=== PATIENT | male | born 1975 | race Caucasian/White ===

== ENCOUNTER 2025-09-21 15:40 | Emergency (ER) | payer OTHER, SELFPAY ==
[2025-09-21] VITALS (7 sets, daily range): BP systolic 116–166; BP diastolic 43–95; PULSE 62–98; RESP 17–20; TEMP 36.7–37.2; O2SAT 93–98; BMI 33.5
--- NOTE | 2025-09-21 | ECG_ITS ---
Test Reason : SYNCOPE Blood Pressure : */* mmHG Vent. Rate : 62 BPM Atrial Rate : 62 BPM P-R Int : 146 ms QRS Dur : 94 ms QT Int : 402 ms P-R-T Axes : 22 3 26 degrees QTcB Int : 408 ms Normal sinus rhythm Normal ECG No previous ECGs available Referred By: Generic ED Physician Electronically Signed By: EWA BOSWELL MD
--- NOTE | ~2025-09-21 | CT_ITS ---
CLINICAL HISTORY: syncope, concern cervicocranial dissection CT Angiography Neck with contrast. 3-D postprocessing Comparison: None provided Findings: Left-sided aortic arch with three-vessel branching pattern. The common carotid arteries, carotid bulbs, and internal carotid arteries are patent. Moderate calcified atherosclerotic disease of bilateral carotid bulbs without flow-limiting stenosis. No definitive dissection. Hypoplastic right vertebral artery with a PICA terminus. Dominant left vertebral artery. Tortuosity of the vertebral arteries at the level of C2 and at the origin (at the level of T1). The visualized lung apices are clear. Normal thyroid gland. The partially visualized brain parenchyma is unremarkable. The mastoid air cells are well aerated in the paranasal sinuses are well aerated. Multilevel degenerative changes of the cervical spine worst from C5-C7. Multilevel mild spinal canal narrowing. Impression: No high-grade stenosis, occlusion, or definite dissection of the major neck arteries. Mild atherosclerotic disease of the bilateral carotid bulbs. Hypoplastic right vertebral artery and dominant left vertebral artery. Significant kinking of the left vertebral artery at the origin/level of T1 limits evaluation for a small dissection flap at this level. The lumen of the artery remains patent throughout its course. This document has been electronically signed by: Janna Saavedra MD on 09/21/2025 19:32:48
--- NOTE | 2025-09-21 17:06 | ED.SYNCOPE ---
HPI - Syncope General Chief Complaint: Syncope Stated Complaint: Syncope Time Seen by Provider: 09/21/25 15:51 History of Present Illness ED Provider: willow PERALTA narrative: Author / Clinician: Jackson Castillo MD Chief Complaint Syncope (black-out episode this afternoon) History of Present Illness The patient presents to the ED after a syncopal episode that occurred at approximately 1500 today. Prior to losing consciousness he experienced a prodrome described as a ?tingly/pulsing? sensation with a fluttering, hungry feeling in his stomach and marked anxiety. He denies headache, chest pain, shortness of breath, or visual changes preceding the event. Witness reports no gasping respirations. He had worked a half-day, had not eaten, and had consumed a Mountain Dew before the event. During the episode his head and neck were noted to be in an extended position while being supported; he denies any neck pain during or after this maneuver. He ambulated into the ambulance without light-headedness and began feeling better en route. He states this episode lasted longer than his prior stress/anxiety-related syncopal events, which typically resolve within a couple of minutes. Past similar episodes: yes, felt related to stress/anxiety in the past. No injuries with current event. No daily medications. He stopped alcohol two months ago and denies drug use. He has chronic, non-pulsatile tinnitus for the past several months. Patient also mentioned concern for possible pinched nerve or symptoms radiating into neck, back, or shoulder. --- Review of Systems ? Constitutional: no light-headedness after standing post-event. ? HEENT: denies headache, vision changes, or ear pain; positive constant ringing in the ears (tinnitus). ? Cardiovascular: denies chest pain or palpitations. ? Respiratory: denies shortness of breath or difficulty breathing. ? Gastrointestinal: fluttering/hungry sensation and mild stomach discomfort earlier today; no persistent abdominal pain at presentation. ? Musculoskeletal: denies neck or back pain; no recent injuries. Patient expressed concern for possible pinched nerve or symptoms radiating into neck, back, or shoulder. ? Neurologic: positive transient tingly/pulsing prodrome; denies focal weakness or persistent neurologic deficits. ? Psychiatric: reports feeling nervous/anxious before event. (Only systems specifically reviewed with the patient are documented.) --- Physical Examination Vital Signs: Not yet documented by provider at the time of this note. Physical Exam: Gen: Alert, awake, well-appearing, well-hydrated. Head: Atraumatic. Eyes: Anicteric, normal conjunctiva. ENT: Moist mucosa, no pallor. Neck: No pain reported during or after neck extension; no current neck discomfort. Respiratory: Breathing comfortably; clear to auscultation bilaterally; symmetric chest expansion; no wheezes, rales, or rhonchi. Cardiovascular: Regular rate and rhythm; no murmurs or rubs; extremities warm without edema. Abdominal: Mild stomach discomfort reported earlier in the day; no persistent abdominal pain at presentation. Neurologic: Alert and oriented; [id number] testing performed; able to follow commands and move extremities. Psych: Calm and cooperative. --- Assessment & Plan Preliminary Differential: - Recurrent syncope ? likely vasovagal vs transient cardiac arrhythmia - Dehydration / possible hypoglycemia - Anxiety-related episode Medical Decision Making This is a male patient presenting with a prolonged syncopal episode. A broad work-up is indicated to evaluate for cardiac, metabolic, and neurologic etiologies as discussed. Syncope: Broad possible etiologies though he is back to baseline and looks well with a reassuring cardiovascular and neurologic exam. ECG sinus rhythm not clinically orthostatic. Lab work reassuring no actionable findings. Possibly arrhythmia, vagal stimulation due to gibson activity, less likely cervical cranial dissection by CT performed to exclude this. --- Risk: - High: Threat to life/bodily Functions Plan: Initial Plan - Laboratory studies: CBC, CMP/electrolytes, thyroid panel, serum glucose, and urinalysis. - 12-lead ECG. - Consider imaging if clinically indicated (e.g., CT/CTA) ? no immediate CT neck planned based on current assessment. - Reassess following results; determine need for cardiology follow-up for outpatient rhythm monitoring. Data Analysis: - Imaging: Independent interpretation of imaging: [ ] - ECG: Independent interpretation of the ECG: Sinus rhythm isolated ST elevation concave upward V3. No STEMI criteria. No ischemic changes. Baseline artifact - POCUS: if performed independently see separate documentation Additional Complexity: - Social Determinants of health: [ ] - Consults: [ ] - Independent review of external records available: [ ] --- ED Course, Updates [ ] Disposition [ ] Critical Care: [N/A] Related Data Allergies Allergy/AdvReac Type Severity Reaction Status Date / Time No Known Allergies Allergy Verified 09/21/25 16:11 [facility] Social History Social History Smoked in Last 30 Days: No Use of substances other than those prescribed or required for medical reasons: Yes Substance Use Type: Marijuana Substance Use Frequency: Occasionally Advance Directives: No Advance Directives Information Provided: Yes Do you have a plan to hurt others: No Plan Physical Exam Vital Signs: Vital Signs: Last Vital Signs Temp 98.3 F 09/21/25 19:41 Pulse 62 09/21/25 19:41 Resp 18 09/21/25 19:41 BP 166/95 H 09/21/25 19:41 Pulse Ox 96 09/21/25 19:41 O2 Del Method Room Air 09/21/25 19:41 BMI result Body Mass Index 33.5 Medications Administered Discontinued Medications Generic Name Dose Route Start Last Admin Trade Name Freq PRN Reason Stop Dose Admin Iohexol 100 ml 09/21/25 18:11 09/21/25 18:11 Iohexol 350 Mg/Ml 100 Ml Infus..Btl IV 09/21/25 18:12 85 ml ONCE ONE Administration Medical Decision Making Medical Decision Making MDM Narrative: [age] male with history as above. Unclear etiology syncopal episode. Nonspecific finding of the left vertebral artery due to kinking though fully reconstituted vertebral artery. There was no visualized dissection nor does the patient have any cerebellar findings vision symptoms or focal neurologic deficits doubt any relevance to the patient's current presentation but I advised him he may need follow up with Neurology for outpatient MRI or further imaging to evaluate this. Reassuring echo, EKG and cardiovascular exam. Could have been a transient arrhythmia vasovagal episode or increased vagal tone from the neck positioning during Temi ring of the albert. Lab Data 09/21/25 17:13 09/21/25 17:13 Labs: Lab Results 09/21/25 09/21/25 Range/Units 17:13 17:45 WBC 9.7 (4.8-10.8) X10*3/uL RBC 4.92 (4.60-5.80) X10*6/uL Hgb 15.5 (14.0-18.0) g/dl Hct 44.0 (42.0-52.0) % MCV 89.4 (80.0-98.0) fL MCH 31.5 (27.0-33.0) pg MCHC 35.2 (31.0-36.0) g/dl RDW 11.9 (11.0-16.0) % Plt Count 229 (160-400) X10*3/uL MPV 9.9 (9.4-12.4) fL Immature Gran % (Auto) 0.4 (0.0-0.4) % Neut % (Auto) 80.6 H (45-73) % Lymph % (Auto) 11.8 L (20-40) % [place] % (Auto) 6.5 (2-11) % Eos % (Auto) 0.4 (0-4) % Baso % (Auto) 0.3 (0-2) % Lymph # (Auto) 1.2 (1.2-4.9) X10*3/uL [place] # (Auto) 0.6 (0.1-1.2) X10*3/uL Eos # (Auto) 0.0 (0.0-0.4) X10*3/uL Baso # (Auto) 0.0 (0.0-0.2) X10*3/uL Abs Immat Gran (auto) 0.04 H (0.00-0.03) X10*3/uL Absolute Neuts (auto) 7.8 (2.0-8.3) x10*3/uL Absolute Nucleated RBC 0.000 (0.0-0.012) X10*3/uL Nucleated RBC % (auto) 0.0 (0.0-0.2) /100WBC Sodium 142 (135-145) mmol/L Potassium 3.8 (3.3-5.1) mmol/L Chloride 106 (96-108) mmol/L Carbon Dioxide 27 (22-29) mmol/L Anion Gap 13 (12-20) BUN 11 (9-16) mg/dL Creatinine 0.88 (0.5-1.4) mg/dL Estim Creat Clear Calc 112.6 Estimated GFR > 60 Random Glucose 98 (60-115) mg/dL Calcium 9.6 (8.4-10.2) mg/dL Magnesium 2.0 (1.6-2.6) mg/dL Total Bilirubin 0.5 (0.0-1.0) mg/dL AST 26 (5-37) U/L ALT 41 H (0-40) U/L Alkaline Phosphatase 41 (39-117) U/L Total Protein 7.2 (6.5-8.0) g/dL Albumin 4.8 (3.5-5.0) g/dL TSH 2.13 (0.32-4.0) uIU/mL Influenza Type A (PCR) NEGATIVE (Negative) Influenza Type B (PCR) NEGATIVE (Negative) RSV RNA Qual (PCR) NEGATIVE (Negative) SARS-CoV-2 RNA (RT-PCR) NEGATIVE (Negative) Procedures Procedure Narrative Procedure Narrative: EMERGENCY ULTRASOUND INTERPRETATION-Limited Echocardiography [This study was ordered, performed, and interpreted by myself. The study reveals: Impression: NORMAL LV FUNCTION, NO RV DYSFUNCTION, NO PERICARDIAL EFFUSION] [Emergent Cardiac for Indication: Views Used: PLAX, PSSA, A4, SX, IVC Pericardial Effusion/Tamponade Findings: NONE RV Dilation (> LV diam in 4ch apical): NONE Global LV Fxn: NORMAL IVC Dilation and Resp Variation: NORMAL Performed by: MD Anna Images were stored CPT:34230] Discharge Plan Discharge Clinical Impression: Syncope Patient Disposition: Home, Self-Care Instructions: Syncope (ED) Additional Instructions: DISCHARGE DIAGNOSES: Syncope passing out of unclear cause at this time Equivocal finding on the left vertebral artery that may need outpatient reimaging with MRI HISTORY OF PRESENTATION: ?Passing out with neck in extension or shortly after EMERGENCY DEPARTMENT COURSE,TESTS, TREATMENTS: While in the ED today you had basic lab work electrolytes blood counts EKG point of care ultrasound of the heart all of which were normal and reassuring you had a CT angiography of the neck which as below findings had some difficulty imaging of the entire arterial system but none of the findings indicate emergent treatment and may need further evaluation with an MRI or other testing as an outpatient DISCHARGE MEDICATIONS: ?[We have made no changes to your regular medication regimen] FOLLOW-UP: ?Call your primary or general physician soon as possible to discuss your symptoms, your ED visit and to discuss follow up plans Cardiology and/or Neurology to discuss recurrent episodes of passing out and neurology appointment to discuss possibility of vertebral artery abnormality which is unlikely related to passing out episodes INSTRUCTIONS ?& RETURN PRECAUTIONS: If any symptoms change first call your primary physician, if it is after-hours your primary doctors office should have a provider performance test consultant you can speak with. If the symptoms are severe or very concerning to you then call 911 or return to the ED. CT findings: Impression: No high-grade stenosis, occlusion, or definite dissection of the major neck arteries. Mild atherosclerotic disease of the bilateral carotid bulbs. Hypoplastic right vertebral artery and dominant left vertebral artery. Significant kinking of the left vertebral artery at the origin/level of T1 limits evaluation for a small dissection flap at this level. The lumen of the artery remains patent throughout its course. This document has been electronically signed by: Janna Saavedra MD on 09/21/2025 19:32:48 Jackson Castillo MD Emergency Physician [facility] Referrals: [facility] [Provider Group] [facility] [Provider Group, Neurology] Interventions: ED Discharge Assessment Last Done: 09/21/25 19:41 Discharge Date/Time: 09/21/25 19:42 Print Language: Spanish
[2025-09-21 17:21] LABS: MANUAL DIFF FLAG NO
[2025-09-21 17:28] LABS: Hematocrit 44.0 % (42.0-52.0); Hemoglobin 15.5 g/dl (14.0-18.0); Imm Gran Abs Auto 0.04 X10*3/uL (0.00-0.03); Imm Gran Pct Auto 0.4 % (0.0-0.4); Lymphocytes Absolute Auto 1.2 X10*3/uL (1.2-4.9); Mean Corpuscular HGB Conc 35.2 g/dl (31.0-36.0); Mean Corpuscular Hemoglobin 31.5 pg (27.0-33.0); Mean Corpuscular Volume 89.4 fL (80.0-98.0); NRBC Abs Auto 0.000 X10*3/uL (0.0-0.012); NRBC Pct Auto 0.0 /100WBC (0.0-0.2); Platelet Count 229 X10*3/uL (160-400); Red Blood Count 4.92 X10*6/uL (4.60-5.80); White Blood Count 9.7 X10*3/uL (4.8-10.8)
[2025-09-21 17:45] LABS: Alanine Aminotransferase 41 U/L (0-40); Albumin Level 4.8 g/dL (3.5-5.0); Alkaline Phosphatase 41 U/L (39-117); Anion Gap 13 (12-20); Aspartate Amino Transferase 26 U/L (5-37); Blood Urea Nitrogen 11 mg/dL (9-16); Calcium 9.6 mg/dL (8.4-10.2); Carbon Dioxide 27 mmol/L (22-29); Chloride 106 mmol/L (96-108); Creatinine Clr Calc Pharmacy 112.6; Estimated Glomerular Filt Rate > 60; Magnesium 2.0 mg/dL (1.6-2.6); Potassium 3.8 mmol/L (3.3-5.1); Sodium 142 mmol/L (135-145); Total Protein 7.2 g/dL (6.5-8.0)
[2025-09-21 18:00] LABS: Thyroid Stimulating Hormone 2.13 uIU/mL (0.32-4.0)
[2025-09-21] MEDS: iohexoL 350 MG/ML 100 ML INFUS..BTL IV (18:11)
[2025-09-21 18:54] LABS: Resp Syncy Virus RNA Qual PCR NEGATIVE (Negative); SARS COV2 PCR INHOUSE NEGATIVE (Negative)
== END 2025-09-21 19:42 | disposition home or self-care (01) ==
PROVIDERS: Emergency Provider Emergency Medicine; PCP Internal Medicine
DX: R55 Syncope and collapse (principal); Z03.818 Encounter for observation for suspected exposure to other biological agents ruled out; H93.19 Tinnitus, unspecified ear; Z79.899 Other long term (current) drug therapy
CPT/HCPCS: 36415; 70498; 80053; 83735; 84443; 85025; 87637; 93005; 93308; 99285; Q9967

== ENCOUNTER → 2025-09-21 15:46 | Outpatient (BNV) | payer OTHER, SELFPAY | PROVIDERS: Emergency Provider Emergency Medicine; PCP Internal Medicine; Visit Provider Internal Medicine Cardiovascular Disease | DX: R55 Syncope and collapse (principal) | CPT/HCPCS: 93010 ==

== ENCOUNTER → 2025-09-21 17:02 | Outpatient (BNV) | payer OTHER, SELFPAY | PROVIDERS: Emergency Provider Emergency Medicine; PCP Internal Medicine; Visit Provider Student in an Organized Health Care Education/Training Program | DX: R55 Syncope and collapse (principal) | CPT/HCPCS: 70498 ==